=== PATIENT | female | born 1960 | race Caucasian/White ===

== ENCOUNTER 2018-04-03 08:12 | Day surgery (SDC) | payer OTHER ==
[2018-04-03] MEDS: BUPIVACAINE 0.5%/EPI (SDV) 30 ML INJ INJ
[~2018-04-03 08:12] MED LIST: CEFAZOLIN 1 GM INJ; SOD CHLORIDE 0.9% 1,000 ML IV; SUCCINYLCHOLINE CHLORIDE 100 MG/5 ML SYG IV
[2018-04-03] MEDS ORDERED: LIDOCAINE 2% (SDV) 5 ML INJ (08:55)
[2018-04-03] MEDS ORDERED: GLYCOPYRROLATE 0.4 MG INJ (08:55)
[2018-04-03] MEDS ORDERED: FENTAnyl 50 MCG/ML VIAL (08:55)
[2018-04-03] MEDS ORDERED: MIDAZOLAM 1 MG/ML 2 ML INJ (08:55)
[2018-04-03] MEDS ORDERED: ONDANSETRON 4 MG INJ (08:55)
[2018-04-03] MEDS ORDERED: PROPOFOL 20 ML (08:55)
[2018-04-03] MEDS ORDERED: ROCURONIUM 50 MG INJ (08:55)
[2018-04-03] MEDS ORDERED: NEOSTIGMINE 3 MG/3 ML SYRINGE (08:55)
[2018-04-03] MEDS ORDERED: NALOXONE (0.4 MG/ML) INJ IV (09:00)
[2018-04-03 09:03] LABS: ADD MAN DIFF? NO
[2018-04-03 09:05] LABS: BASOPHIL # 0.1 10^3/ul (0.0-0.1); BASOPHILS % 0.8 % (0.0-2.0); EOSINOPHILS # 0.4 10^3/ul (0.0-0.5); EOSINOPHILS % 5.9 % (0.0-7.0); HEMATOCRIT 37.6 % (37.0-47.0); HEMOGLOBIN 12.5 g/dl (12.0-16.0); LYMPHOCYTES # 1.4 10^3/ul (0.8-2.9); LYMPHOCYTES % 20.9 % (15.0-51.0); MEAN CORPUSCULAR HEMOGLOBIN 30.1 pg (29.0-33.0); MEAN CORPUSCULAR HGB CONC 33.2 g/dl (32.0-37.0); MEAN CORPUSCULAR VOLUME 90.6 fl (82.0-101.0); MEAN PLATELET VOLUME 9.3 fl (7.4-10.4); MONOCYTE # 0.6 10^3/ul (0.3-0.9); MONOCYTES % 8.6 % (0.0-11.0); NEUTROPHIL # 4.3 10^3/ul (1.6-7.5); NEUTROPHILS % 63.6 % (39.0-77.0); PLATELET COUNT 368 10^3/UL (140-415); RED BLOOD COUNT 4.15 10^6/ul (4.20-5.40); RED CELL DISTRIBUTION WIDTH 12.8 % (11.5-14.5)
[2018-04-03 09:05] LABS: WHITE BLOOD COUNT 6.7 10^3/ul (4.8-10.8)
[2018-04-03 09:24] LABS: ALANINE AMINOTRANSFERASE 24 IU/L (13-69); ALBUMIN 4.3 g/dl (3.3-4.9); ALBUMIN/GLOBULIN RATIO 1.22; ALKALINE PHOSPHATASE 112 IU/L (42-121); ANION GAP 16 (8-16); ASPARTATE AMINO TRANSFERASE 30 IU/L (15-46); BILIRUBIN,INDIRECT 0.4 mg/dl (0-1.1); BILIRUBIN,TOTAL 0.4 mg/dl (0.2-1.3); BLOOD UREA NITROGEN 14 mg/dl (7-20); CARBON DIOXIDE 26 mmol/L (21-31); CHLORIDE 105 mmol/L (97-110); CREATININE 0.58 mg/dl (0.44-1.00); GLUCOSE 90 mg/dl (70-220); SODIUM 143 mmol/L (135-144); TOTAL PROTEIN 7.8 g/dl (6.1-8.1)
[2018-04-03 09:29] LABS: INR 1.03; PROTIME 13.6 Sec (11.9-14.9); PT RATIO 1.1
[2018-04-03] MEDS ORDERED: BUPIVACAINE 0.5%/EPI (SDV) 30 ML INJ (11:13)
[2018-04-03] MEDS ORDERED: HYDROmorphONE 1 MG/5 ML IV SYRINGE IV ×3 (12:00)
[2018-04-03] MEDS ORDERED: ONDANSETRON 4 MG INJ IV (12:00)
== END 2018-04-03 13:02 | disposition home or self-care (01) ==
LOC: SDS 08:12
DX: Z45.2 Encounter for adjustment and management of vascular access device (principal); C18.9 Malignant neoplasm of colon, unspecified; I10 Essential (primary) hypertension; E03.9 Hypothyroidism, unspecified
CPT/HCPCS: 36590; 80053; 85025; 85610; 85730; 88300